=== PATIENT | female | born 1990 | race Caucasian/White ===

== ENCOUNTER 2020-02-27 07:53 | Inpatient (IN) ==
[2020-02-27] MEDS ORDERED: OXYTOCIN 30 UNITS/500 ML BAG IV PRN (08:30)
[2020-02-27 08:54] LABS: Hematocrit (blood only) 35.1 % (37-47); Hemoglobin 11.5 g/dL (12.0-16.0); Mean Corpuscular Hemoglobin 25.7 pg (25-34); Mean Corpuscular Volume 78.3 fL (80-100); Mean Platelet Volume 10.4 fL (7.4-10.4); Platelet Count 176 K/uL (130-400); RDW Coefficient of Variation 14.4 % (11.5-14.5); RDW Standard Deviation 41.5 fL (36.4-46.3); Red Blood Count 4.48 M/uL (4.2-5.4); White Blood Count 14.66 K/uL (4.8-10.8)
[2020-02-27] MEDS: LACTATED RINGER'S 1,000 ML IV PRN ×3 (08:56→16:24)
[2020-02-27 09:01] LABS: Mean Corpuscular Hgb Conc 32.8 g/dL (32-36)
[2020-02-27] MEDS: OXYTOCIN 30 UNITS/500 ML BAG IV PRN ×2 (09:09→16:24)
--- NOTE | 2020-02-27 09:18 | History & Physical Report ---
Date of Service February 27, 2020 Assessment & Plan (1) 39 weeks gestation of : (2) Intrauterine growth restriction (IUGR) affecting care of mother: IOL for FGR at 39 wks VSS s/p garcia bulb, will start augmentation w/ pit GBS neg epidural PRN Present on Admission?: Yes Admission and Anticipated Discharge Date Admission Date: February 27, 2020 History of Present Illness Chief Complaint: IOL FGR Primary Care Provider: NO PCP 29 y/o G1 at 39w1d wga presenting for IOL for FGR. +FM and ctx; -LOF, some blood with wiping. Reports garcia came out around 630 this morning PNI: FGR EFW 6% at 36w5d, UA dopplers and DVPs have been wnl Allergies Allergy/AdvReac Type Severity Reaction Status Date / Time No Known Allergies Allergy Verified 02/26/20 19:33 Home Medications Home Medications Medication Instructions Recorded Confirmed Type prenat.vits,shon,acs-psmg-lyzte 1 tab PO DAILY 07/29/19 02/26/20 History ferrous sulfate 325 mg PO DAILY 02/26/20 02/26/20 History Patient History Medical History Abnormal biochemical finding on screening of mother Encounter for anatomic survey Hx of varicella Vaginal infection Yeast infection Surgical History No pertinent past surgical history Family History Grandfather Esophageal cancer Father Hypertension Social History Smoking Status: Never smoker Second Hand Exposure: No; Do You Dip or Chew Tobacco: No; Tobacco Cessation Education Requested by Patient: No Hx Alcohol Use: No Hx Substance Use: No Preferred Language: Lithuanian Communication Ability: Effective Harness Mender Required: No Beliefs That Will Affect Care: None marital status: marital status details: Jasson Amos (28) [phone] Current Living Situation: Spouse Current Living Situation Comment: Pt lives with spouse current occupational status: unemployed current occupation: homemaker Other Information That Helps Us Care for You: No Feels Safe at Home: Yes Safety Concerns: Feels Safe At This Time Assistive Devices: None Physical Exam Constitutional: well developed and well nourished; no acute distress Respiratory: normal respiratory effort; no labored breathing Gastrointestinal (Abdomen): Percussion/Palpation: abdomen soft; abdomen nontender gravid Genitourinary: OB Exam Abdomen: + vertex and + estimated weight (5-6lbs) Manual OB Exam: + cervical dilation 3 cm, + cervical effacement 70% and + station -2 OB Exam Monitor Tracing: + external FHT monitor used, + external uterine monitor used (q6min) and + category I (150/mod/+accel/-decel) Results & Data ([facility]) Vital Signs (Past 12 Hours) Vital Signs Temp Pulse Resp BP 02/27/20 08:18 97.9 F 115 H 16 126/83 02/27/20 08:02 115 H 126/83 Laboratory Results A+ rubella imm GBS neg RPR NR Hep B NR HIV neg Declined genetic screening Code Status & VTE Plan VTE Prophylaxis Plan VTE Prophylaxis will be ordered: Yes Coding Level of Care Code None Diagnoses 39 weeks gestation of Z3A.39 Intrauterine growth restriction (IUGR) affecting care of mother O36.5990
[2020-02-27] MEDS ORDERED: ePHEDrine sulfate 50 MG/ML AMP ONE (09:53)
[2020-02-27] MEDS ORDERED: fentaNYL 2MCG/ML ROPIV 1.25MG/ML 100 ML BAG EPI ONE (09:54)
[2020-02-27] MEDS ORDERED: fentaNYL citrate 100 MCG/2 ML VIAL ONE (09:54)
[2020-02-27] MEDS ORDERED: BUPIVACAINE 0.25% 30 ML VIAL ONE (09:54)
[2020-02-27] MEDS ORDERED: ePHEDrine sulfate 50 MG/ML AMP IV PRN (10:53)
[2020-02-27] MEDS ORDERED: DiphenhydrAMINE HCL 50 MG/ML VIAL IV PRN (10:53)
[2020-02-27] MEDS ORDERED: fentaNYL 2MCG/ML ROPIV 1.25MG/ML 100 ML BAG EPI PRN (10:53)
[2020-02-27] MEDS ORDERED: NALOXONE HCL 1 MG in SODIUM CHLORIDE 0.9% 1000ML 1,000 ML IV PRN (10:53)
[2020-02-27] MEDS ORDERED: NALOXONE HCL 0.4 MG/1 ML VIAL/CARP IV PRN (10:53)
[2020-02-27] MEDS ORDERED: ONDANSETRON INJ 2 MG/ML 2 ML VIAL IV PRN (10:53)
--- NOTE | 2020-02-27 10:56 | Anesthesiology Consultation ---
Date of Service February 27, 2020 Covid 19 negative today. Assessment & Plan Chart Review Chart Review: Patient NOT seen in Pre Admission Testing and Acceptable Risk for Labor Epidural Consults Requested none ASA ASA2 Proposed Anesthesia Anesthesia Type: Labor Epidural and CSE Risk / Benefits Reviewed With: PT / POA / Parent / Guardian, Accepts Plan and Informed Consent Obtained History Height/Weight Height: 5 ft Weight: 57.153 kg Allergies Allergy/AdvReac Type Severity Reaction Status Date / Time No Known Allergies Allergy Verified 02/26/20 19:33 Medications Home Medications Medication Instructions Recorded Confirmed Last Taken prenat.vits,shon,ole-jvws-uguzj 1 tab PO DAILY 07/29/19 02/26/20 02/25/20 21:00 ferrous sulfate 325 mg PO DAILY 02/26/20 02/26/20 02/26/20 21:00 Active Medications Generic Name Dose Route Start Last Admin Trade Name Freq PRN Reason Stop Dose Admin Lactated Ringer's 1,000 mls @ 125 mls/hr 02/27/20 08:30 02/27/20 10:40 Lr IV 02/29/20 08:29 125 mls/hr .Q8H PRN Administration L&D Protocol Protocol Oxytocin 30 units in 500 mls @ 7 mls/hr 02/27/20 08:35 02/27/20 10:40 Pitocin IV 02/29/20 08:34 0.42 units/hr .Q24H PRN 7 mls/hr Labor Induction/Augmentation Titration Protocol 0.42 UNITS/HR NPO Date Last Intake of Fluids: 02/27/20 Time Last Intake of Fluids: 09:00 Date Last Intake of Solids: 02/26/20 Time Last Intake of Solids: 22:00 Past Medical History Medical History Abnormal biochemical finding on screening of mother Encounter for anatomic survey Hx of varicella Vaginal infection Yeast infection Exercise / Class Metabolic Activity II 4-5 Yardwork/Stairs/Walk up hill Past Family History Family History Grandfather Esophageal cancer Father Hypertension Past Surgical History Surgical History No pertinent past surgical history Past Anesthesia History No Hx of Anesthesia Complications and No Family Hx of Anesthesia Complications History of PONV No Hx of PONV and No Hx of Motion Sickness Social History Smoking Status: Never smoker Do You Dip or Chew Tobacco: No Hx Alcohol Use: No Hx Substance Use: No substance use type: does not use Review of Systems no chest pain or sob Physical Exam Vital Signs Last Vital Signs Temp 36.6 C 02/27/20 08:18 Pulse 113 H 02/27/20 10:51 Resp 16 02/27/20 08:18 BP 140/99 02/27/20 10:37 Pulse Ox 99 02/27/20 10:51 ENMT Mouth: no TMJ abnormality Thyromental Distance: > or= 3.5 Finger Breadths Mallampati Class: II Neck normal visual inspection Respiratory normal respiratory effort Auscultation: lungs clear to auscultation bilaterally Cardiovascular Rate/Rhythm: regular rate and regular rhythm Musculoskeletal Spine: normal cervical ROM Neurologic moves all extremities Psychiatric Orientation: alert and oriented x 3 Testing Laboratory Results 02/27/20 08:40
--- NOTE | 2020-02-27 12:45 | Labor Progress Brief Note ---
Date of Service February 27, 2020 Subjective Comfortable with epidural Assessment & Plan (1) 39 weeks gestation of : (2) Intrauterine growth restriction (IUGR) affecting care of mother: IOL for FGR at 39 wks VSS cat 2 tracing but reassuring pit at 13, continue repositioning GBS neg epidural Admission and Anticipated Discharge Date Admission Date: February 27, 2020 Physical Exam Genitourinary: OB Exam Monitor Tracing: + external uterine monitor used (q4min) and + category II (150/mod/+accel/+intermittent variables) 3.5/80/-2 by nursing Results & Data ([facility]) Vital Signs (Past 12 Hours) Vital Signs Temp Pulse Resp BP Pulse Ox 02/27/20 12:41 90 100 02/27/20 12:40 89 92 02/27/20 12:36 71 100 02/27/20 12:32 74 134/81 02/27/20 12:31 78 100 02/27/20 12:26 73 100 02/27/20 12:21 76 123/87 100 02/27/20 12:16 89 98 02/27/20 12:12 99 H 90 02/27/20 12:11 99 H 98 02/27/20 12:06 79 97 02/27/20 12:04 81 92 02/27/20 12:02 78 124/89 02/27/20 12:01 84 100 02/27/20 12:00 97.7 F 18 02/27/20 11:56 84 100 02/27/20 11:51 83 99 02/27/20 11:46 88 111/67 100 02/27/20 11:41 79 100 02/27/20 11:36 89 100 02/27/20 11:32 90 109/65 02/27/20 11:31 82 100 02/27/20 11:27 111 H 111/76 02/27/20 11:26 97 H 99 02/27/20 11:25 92 H 101/63 02/27/20 11:23 76 113/67 02/27/20 11:21 88 111/65 100 02/27/20 11:18 86 114/64 02/27/20 11:16 90 100 02/27/20 11:15 100 H 114/77 02/27/20 11:13 86 115/84 02/27/20 11:12 92 H 118/75 02/27/20 11:11 90 99 02/27/20 11:07 99 H 128/75 02/27/20 11:06 92 H 99 02/27/20 11:03 115 H 136/97 02/27/20 11:01 109 H 99 02/27/20 10:56 116 H 99 02/27/20 10:51 113 H 99 02/27/20 10:46 107 H 99 02/27/20 10:41 104 H 100 02/27/20 10:37 92 H 140/99 02/27/20 10:36 103 H 99 02/27/20 10:33 98 H 138/87 02/27/20 10:31 114 H 97 02/27/20 10:09 108 H 130/91 02/27/20 09:56 98 H 129/89 02/27/20 09:39 89 124/87 02/27/20 08:18 97.9 F 115 H 16 126/83 02/27/20 08:02 115 H 126/83 Coding Level of Care Code None Diagnoses 39 weeks gestation of Z3A.39 Intrauterine growth restriction (IUGR) affecting care of mother O36.5990
--- NOTE | 2020-02-27 14:35 | Labor Progress Brief Note ---
Date of Service February 27, 2020 Subjective Comfortable with epidural, occasional contraction pain Assessment & Plan (1) 39 weeks gestation of : (2) Intrauterine growth restriction (IUGR) affecting care of mother: IOL for FGR at 39 wks VSS cat 2 tracing but still reassuring pit at 17, continue peanut ball and augmentation GBS neg epidural Admission and Anticipated Discharge Date Admission Date: February 27, 2020 Physical Exam Genitourinary: Manual OB Exam: + cervical dilation (3.5cm), + cervical effacement 70% and + station -1 OB Exam Monitor Tracing: + external FHT monitor used, + external uterine monitor used (q4min) and + category II (150/mod/+accel/intermit variables) Results & Data ([facility]) Vital Signs (Past 12 Hours) Vital Signs Temp Pulse Resp BP Pulse Ox 02/27/20 14:26 100 H 96 02/27/20 14:21 103 H 100 02/27/20 14:16 80 127/81 100 02/27/20 14:11 73 100 02/27/20 14:06 75 100 02/27/20 14:04 85 126/79 02/27/20 14:01 92 H 100 02/27/20 13:56 106 H 100 02/27/20 13:51 79 100 02/27/20 13:48 87 149/65 H 02/27/20 13:46 91 H 100 02/27/20 13:41 84 100 02/27/20 13:36 76 100 02/27/20 13:32 80 106/64 02/27/20 13:31 90 100 02/27/20 13:26 90 100 02/27/20 13:21 94 H 100 02/27/20 13:16 75 137/88 100 02/27/20 13:11 76 100 02/27/20 13:07 113 H 91 02/27/20 13:06 91 H 100 02/27/20 13:01 84 100 02/27/20 12:59 87 89 L 02/27/20 12:56 79 91 02/27/20 12:52 84 91 02/27/20 12:51 83 94 02/27/20 12:46 79 130/73 100 02/27/20 12:41 90 100 02/27/20 12:40 89 92 02/27/20 12:36 71 100 02/27/20 12:32 74 134/81 02/27/20 12:31 78 100 02/27/20 12:26 73 100 02/27/20 12:21 76 123/87 100 02/27/20 12:16 89 98 02/27/20 12:12 99 H 90 02/27/20 12:11 99 H 98 02/27/20 12:06 79 97 02/27/20 12:04 81 92 02/27/20 12:02 78 124/89 02/27/20 12:01 84 100 02/27/20 12:00 97.7 F 18 02/27/20 11:56 84 100 02/27/20 11:51 83 99 02/27/20 11:46 88 111/67 100 02/27/20 11:41 79 100 02/27/20 11:36 89 100 02/27/20 11:32 90 109/65 02/27/20 11:31 82 100 02/27/20 11:27 111 H 111/76 02/27/20 11:26 97 H 99 02/27/20 11:25 92 H 101/63 02/27/20 11:23 76 113/67 02/27/20 11:21 88 111/65 100 02/27/20 11:18 86 114/64 02/27/20 11:16 90 100 02/27/20 11:15 100 H 114/77 02/27/20 11:13 86 115/84 02/27/20 11:12 92 H 118/75 02/27/20 11:11 90 99 02/27/20 11:07 99 H 128/75 02/27/20 11:06 92 H 99 02/27/20 11:03 115 H 136/97 02/27/20 11:01 109 H 99 02/27/20 10:56 116 H 99 02/27/20 10:51 113 H 99 02/27/20 10:46 107 H 99 02/27/20 10:41 104 H 100 02/27/20 10:37 92 H 140/99 02/27/20 10:36 103 H 99 02/27/20 10:33 98 H 138/87 02/27/20 10:31 114 H 97 02/27/20 10:09 108 H 130/91 02/27/20 09:56 98 H 129/89 02/27/20 09:39 89 124/87 02/27/20 08:18 97.9 F 115 H 16 126/83 02/27/20 08:02 115 H 126/83 Coding Level of Care Code None Diagnoses 39 weeks gestation of Z3A.39 Intrauterine growth restriction (IUGR) affecting care of mother O36.5990
--- NOTE | 2020-02-27 16:17 | Labor Progress Brief Note ---
Date of Service February 27, 2020 Subjective Comfortable with epidural Assessment & Plan (1) Intrauterine growth restriction (IUGR) affecting care of mother: IOL for FGR at 39 wks VSS cat 2 tracing but still reassuring pit at 19 with more variables, no change in cervix. Will pit break and restart after 1 hour GBS neg epidural Admission and Anticipated Discharge Date Admission Date: February 27, 2020 Physical Exam Genitourinary: OB Exam Abdomen: + vertex and + estimated weight (5-6lbs) Manual OB Exam: + cervical dilation (3.5cm) 3 cm, + cervical effacement 70% and + station -1 OB Exam Monitor Tracing: + external FHT monitor used, + external uterine monitor used (q4min) and + category II (150/mod/+accel/intermit variables, more prevalent) Results & Data ([facility]) Vital Signs (Past 12 Hours) Vital Signs Temp Pulse Resp BP Pulse Ox 02/27/20 16:11 77 100 02/27/20 16:06 77 100 02/27/20 16:01 86 100 02/27/20 16:00 94 H 18 93 02/27/20 15:56 79 100 02/27/20 15:51 77 100 02/27/20 15:47 72 151/85 H 02/27/20 15:46 71 100 02/27/20 15:41 70 100 02/27/20 15:36 72 100 02/27/20 15:31 97 H 116/79 100 02/27/20 15:30 18 02/27/20 15:26 78 100 02/27/20 15:21 76 100 02/27/20 15:16 102 H 114/70 100 02/27/20 15:11 78 100 02/27/20 15:06 85 100 02/27/20 15:04 95 H 91 02/27/20 15:01 77 149/95 H 98 02/27/20 15:00 97.9 F 18 02/27/20 14:57 87 91 02/27/20 14:56 86 94 02/27/20 14:51 98 H 97 02/27/20 14:47 90 117/83 02/27/20 14:46 96 H 100 02/27/20 14:41 94 H 100 02/27/20 14:36 71 100 02/27/20 14:32 85 132/94 02/27/20 14:31 79 100 02/27/20 14:26 100 H 96 02/27/20 14:21 103 H 100 02/27/20 14:16 80 127/81 100 02/27/20 14:11 73 100 02/27/20 14:06 75 100 02/27/20 14:05 98.2 F 16 02/27/20 14:04 85 126/79 02/27/20 14:01 92 H 100 02/27/20 13:56 106 H 100 02/27/20 13:51 79 100 02/27/20 13:48 87 149/65 H 02/27/20 13:46 91 H 100 02/27/20 13:41 84 100 02/27/20 13:36 76 100 02/27/20 13:32 80 106/64 02/27/20 13:31 90 100 02/27/20 13:26 90 100 02/27/20 13:21 94 H 100 02/27/20 13:16 75 137/88 100 02/27/20 13:11 76 100 02/27/20 13:07 113 H 91 02/27/20 13:06 91 H 100 02/27/20 13:01 84 100 02/27/20 12:59 87 89 L 02/27/20 12:56 79 91 02/27/20 12:52 84 91 02/27/20 12:51 83 94 02/27/20 12:46 79 130/73 100 02/27/20 12:41 90 100 02/27/20 12:40 89 92 02/27/20 12:36 71 100 02/27/20 12:32 74 134/81 02/27/20 12:31 78 100 02/27/20 12:26 73 100 02/27/20 12:21 76 123/87 100 02/27/20 12:16 89 98 02/27/20 12:12 99 H 90 02/27/20 12:11 99 H 98 02/27/20 12:06 79 97 02/27/20 12:04 81 92 02/27/20 12:02 78 124/89 02/27/20 12:01 84 100 02/27/20 12:00 97.7 F 18 02/27/20 11:56 84 100 02/27/20 11:51 83 99 02/27/20 11:46 88 111/67 100 02/27/20 11:41 79 100 02/27/20 11:36 89 100 02/27/20 11:32 90 109/65 02/27/20 11:31 82 100 02/27/20 11:27 111 H 111/76 02/27/20 11:26 97 H 99 02/27/20 11:25 92 H 101/63 02/27/20 11:23 76 113/67 02/27/20 11:21 88 111/65 100 02/27/20 11:18 86 114/64 02/27/20 11:16 90 100 02/27/20 11:15 100 H 114/77 02/27/20 11:13 86 115/84 02/27/20 11:12 92 H 118/75 02/27/20 11:11 90 99 02/27/20 11:07 99 H 128/75 02/27/20 11:06 92 H 99 02/27/20 11:03 115 H 136/97 02/27/20 11:01 109 H 99 02/27/20 10:56 116 H 99 02/27/20 10:51 113 H 99 02/27/20 10:46 107 H 99 02/27/20 10:41 104 H 100 02/27/20 10:37 92 H 140/99 02/27/20 10:36 103 H 99 02/27/20 10:33 98 H 138/87 02/27/20 10:31 114 H 97 02/27/20 10:09 108 H 130/91 02/27/20 09:56 98 H 129/89 02/27/20 09:39 89 124/87 02/27/20 08:18 97.9 F 115 H 16 126/83 02/27/20 08:02 115 H 126/83 Coding Level of Care Code None Diagnoses Intrauterine growth restriction (IUGR) affecting care of mother O36.5990
--- NOTE | 2020-02-27 19:15 | Labor Progress Brief Note ---
Date of Service February 27, 2020 Subjective Comfortable with epidural Assessment & Plan (1) Intrauterine growth restriction (IUGR) affecting care of mother: IOL for FGR at 39 wks VSS cat 2 tracing but will improve with resuscitations. Continue to monitor pit at 6, continuing to progress with reassuring tracing. s/p SROM this AM GBS neg epidural Admission and Anticipated Discharge Date Admission Date: February 27, 2020 Physical Exam Genitourinary: Manual OB Exam: + cervical dilation 4 cm, + cervical effacement 90% and + station 0 OB Exam Monitor Tracing: + external FHT monitor used, + external uterine monitor used (q4min) and + category II (160/mod/- accels/intermit variables) Results & Data ([facility]) Vital Signs (Past 12 Hours) Vital Signs Temp Pulse Resp BP Pulse Ox 02/27/20 19:06 83 99 02/27/20 19:02 100 H 115/76 02/27/20 19:01 103 H 99 02/27/20 18:56 120 H 100 02/27/20 18:51 79 99 02/27/20 18:48 77 129/79 02/27/20 18:46 91 H 100 02/27/20 18:41 82 100 02/27/20 18:36 88 99 02/27/20 18:33 108 H 118/79 02/27/20 18:31 112 H 99 02/27/20 18:26 90 100 02/27/20 18:21 102 H 99 02/27/20 18:17 93 H 138/87 02/27/20 18:16 88 100 02/27/20 18:11 109 H 100 02/27/20 18:06 107 H 98 02/27/20 18:01 99 H 137/89 99 02/27/20 18:00 98.2 F 18 02/27/20 17:56 103 H 99 02/27/20 17:51 107 H 100 02/27/20 17:46 108 H 124/83 98 02/27/20 17:41 112 H 99 02/27/20 17:38 116 H 92 02/27/20 17:36 90 98 02/27/20 17:31 107 H 128/87 99 02/27/20 17:30 18 02/27/20 17:26 105 H 100 02/27/20 17:24 113 H 90 02/27/20 17:21 117 H 100 02/27/20 17:18 116 H 123/75 02/27/20 17:16 117 H 100 02/27/20 17:11 85 100 02/27/20 17:09 124 H 90 02/27/20 17:06 90 98 02/27/20 17:02 108 H 111/82 02/27/20 17:01 86 100 02/27/20 17:00 98.4 F 18 02/27/20 16:56 90 99 02/27/20 16:51 96 H 100 02/27/20 16:46 85 114/64 100 02/27/20 16:41 81 95 02/27/20 16:36 78 100 02/27/20 16:32 76 123/73 02/27/20 16:31 78 100 02/27/20 16:26 87 100 02/27/20 16:21 80 100 02/27/20 16:16 79 125/75 100 02/27/20 16:11 77 100 02/27/20 16:06 77 100 02/27/20 16:01 86 100 02/27/20 16:00 94 H 18 93 02/27/20 15:56 79 100 02/27/20 15:51 77 100 02/27/20 15:47 72 151/85 H 02/27/20 15:46 71 100 02/27/20 15:41 70 100 02/27/20 15:36 72 100 02/27/20 15:31 97 H 116/79 100 02/27/20 15:30 18 02/27/20 15:26 78 100 02/27/20 15:21 76 100 02/27/20 15:16 102 H 114/70 100 02/27/20 15:11 78 100 02/27/20 15:06 85 100 02/27/20 15:04 95 H 91 02/27/20 15:01 77 149/95 H 98 02/27/20 15:00 97.9 F 18 02/27/20 14:57 87 91 02/27/20 14:56 86 94 02/27/20 14:51 98 H 97 02/27/20 14:47 90 117/83 02/27/20 14:46 96 H 100 02/27/20 14:41 94 H 100 02/27/20 14:36 71 100 09/28/20 14:32 85 132/94 02/27/20 14:31 79 100 02/27/20 14:26 100 H 96 02/27/20 14:21 103 H 100 02/27/20 14:16 80 127/81 100 02/27/20 14:11 73 100 02/27/20 14:06 75 100 02/27/20 14:05 98.2 F 16 02/27/20 14:04 85 126/79 02/27/20 14:01 92 H 100 02/27/20 13:56 106 H 100 02/27/20 13:51 79 100 02/27/20 13:48 87 149/65 H 02/27/20 13:46 91 H 100 02/27/20 13:41 84 100 02/27/20 13:36 76 100 02/27/20 13:32 80 106/64 02/27/20 13:31 90 100 02/27/20 13:26 90 100 02/27/20 13:21 94 H 100 02/27/20 13:16 75 137/88 100 02/27/20 13:11 76 100 02/27/20 13:07 113 H 91 02/27/20 13:06 91 H 100 02/27/20 13:01 84 100 02/27/20 12:59 87 89 L 02/27/20 12:56 79 91 02/27/20 12:52 84 91 02/27/20 12:51 83 94 02/27/20 12:46 79 130/73 100 02/27/20 12:41 90 100 02/27/20 12:40 89 92 02/27/20 12:36 71 100 02/27/20 12:32 74 134/81 02/27/20 12:31 78 100 02/27/20 12:26 73 100 02/27/20 12:21 76 123/87 100 02/27/20 12:16 89 98 02/27/20 12:12 99 H 90 02/27/20 12:11 99 H 98 02/27/20 12:06 79 97 02/27/20 12:04 81 92 02/27/20 12:02 78 124/89 02/27/20 12:01 84 100 02/27/20 12:00 97.7 F 18 02/27/20 11:56 84 100 02/27/20 11:51 83 99 02/27/20 11:46 88 111/67 100 02/27/20 11:41 79 100 02/27/20 11:36 89 100 02/27/20 11:32 90 109/65 02/27/20 11:31 82 100 02/27/20 11:27 111 H 111/76 02/27/20 11:26 97 H 99 02/27/20 11:25 92 H 101/63 02/27/20 11:23 76 113/67 02/27/20 11:21 88 111/65 100 02/27/20 11:18 86 114/64 02/27/20 11:16 90 100 02/27/20 11:15 100 H 114/77 02/27/20 11:13 86 115/84 02/27/20 11:12 92 H 118/75 02/27/20 11:11 90 99 02/27/20 11:07 99 H 128/75 02/27/20 11:06 92 H 99 02/27/20 11:03 115 H 136/97 02/27/20 11:01 109 H 99 02/27/20 10:56 116 H 99 02/27/20 10:51 113 H 99 02/27/20 10:46 107 H 99 02/27/20 10:41 104 H 100 02/27/20 10:37 92 H 140/99 02/27/20 10:36 103 H 99 02/27/20 10:33 98 H 138/87 02/27/20 10:31 114 H 97 02/27/20 10:09 108 H 130/91 02/27/20 09:56 98 H 129/89 02/27/20 09:39 89 124/87 02/27/20 08:18 97.9 F 115 H 16 126/83 02/27/20 08:02 115 H 126/83 Coding Level of Care Code None Diagnoses Intrauterine growth restriction (IUGR) affecting care of mother O36.5990
--- NOTE | 2020-02-27 21:04 | Labor Progress Brief Note ---
Date of Service February 27, 2020 Subjective Comfortable with epidural Assessment & Plan (1) Intrauterine growth restriction (IUGR) affecting care of mother: IOL for FGR at 39 wks VSS cat 2 tracing but will improve with resuscitations. Continue to monitor pit at 6, continuing to progress, will continue to monitor. Discussed if minimal progression and worsening of strip, will need to discuss moving towards . Pt verbalized understanding GBS neg epidural Admission and Anticipated Discharge Date Admission Date: February 27, 2020 Physical Exam Genitourinary: Manual OB Exam: + cervical dilation 5 cm, + cervical effacement 90% and + station 0 OB Exam Monitor Tracing: + external FHT monitor used, + external uterine monitor used (q4min) and + category II (170/mod/+accels/intermit early and variables) Results & Data ([facility]) Vital Signs (Past 12 Hours) Vital Signs Temp Pulse Resp BP Pulse Ox 02/27/20 20:56 94 H 99 02/27/20 20:51 98 H 99 02/27/20 20:46 95 H 119/77 100 02/27/20 20:41 88 100 02/27/20 20:36 74 100 02/27/20 20:32 88 110/78 02/27/20 20:31 102 H 100 02/27/20 20:26 104 H 100 02/27/20 20:22 97.9 F 18 02/27/20 20:21 110 H 99 02/27/20 20:18 118 H 107/60 02/27/20 20:16 106 H 93 02/27/20 20:11 80 100 02/27/20 20:06 94 H 100 02/27/20 20:03 86 134/73 02/27/20 20:01 82 100 02/27/20 19:56 95 H 98 02/27/20 19:51 87 93 02/27/20 19:50 82 121/74 02/27/20 19:47 82 140/90 02/27/20 19:46 84 100 02/27/20 19:41 82 100 02/27/20 19:38 85 91 02/27/20 19:36 87 100 02/27/20 19:33 83 90 02/27/20 19:31 83 100 02/27/20 19:26 92 H 99 02/27/20 19:25 90 91 02/27/20 19:21 81 100 02/27/20 19:16 83 131/75 100 02/27/20 19:14 87 92 02/27/20 19:11 98.8 F 80 18 100 02/27/20 19:06 83 99 02/27/20 19:02 100 H 115/76 02/27/20 19:01 103 H 99 02/27/20 18:56 120 H 100 02/27/20 18:51 79 99 02/27/20 18:48 77 129/79 02/27/20 18:46 91 H 100 02/27/20 18:41 82 100 02/27/20 18:36 88 99 02/27/20 18:33 108 H 118/79 02/27/20 18:31 112 H 99 02/27/20 18:26 90 100 02/27/20 18:21 102 H 99 02/27/20 18:17 93 H 138/87 02/27/20 18:16 88 100 02/27/20 18:11 109 H 100 02/27/20 18:06 107 H 98 02/27/20 18:01 99 H 137/89 99 02/27/20 18:00 98.2 F 18 02/27/20 17:56 103 H 99 02/27/20 17:51 107 H 100 02/27/20 17:46 108 H 124/83 98 02/27/20 17:41 112 H 99 02/27/20 17:38 116 H 92 02/27/20 17:36 90 98 02/27/20 17:31 107 H 128/87 99 02/27/20 17:30 18 02/27/20 17:26 105 H 100 02/27/20 17:24 113 H 90 02/27/20 17:21 117 H 100 02/27/20 17:18 116 H 123/75 02/27/20 17:16 117 H 100 02/27/20 17:11 85 100 02/27/20 17:09 124 H 90 02/27/20 17:06 90 98 02/27/20 17:02 108 H 111/82 02/27/20 17:01 86 100 02/27/20 17:00 98.4 F 18 02/27/20 16:56 90 99 02/27/20 16:51 96 H 100 02/27/20 16:46 85 114/64 100 02/27/20 16:41 81 95 02/27/20 16:36 78 100 02/27/20 16:32 76 123/73 02/27/20 16:31 78 100 02/27/20 16:26 87 100 02/27/20 16:21 80 100 02/27/20 16:16 79 125/75 100 02/27/20 16:11 77 100 02/27/20 16:06 77 100 02/27/20 16:01 86 100 02/27/20 16:00 94 H 18 93 02/27/20 15:56 79 100 02/27/20 15:51 77 100 02/27/20 15:47 72 151/85 H 02/27/20 15:46 71 100 02/27/20 15:41 70 100 02/27/20 15:36 72 100 02/27/20 15:31 97 H 116/79 100 02/27/20 15:30 18 02/27/20 15:26 78 100 02/27/20 15:21 76 100 02/27/20 15:16 102 H 114/70 100 02/27/20 15:11 78 100 02/27/20 15:06 85 100 02/27/20 15:04 95 H 91 02/27/20 15:01 77 149/95 H 98 02/27/20 15:00 97.9 F 18 02/27/20 14:57 87 91 02/27/20 14:56 86 94 02/27/20 14:51 98 H 97 02/27/20 14:47 90 117/83 02/27/20 14:46 96 H 100 02/27/20 14:41 94 H 100 02/27/20 14:36 71 100 02/27/20 14:32 85 132/94 02/27/20 14:31 79 100 02/27/20 14:26 100 H 96 02/27/20 14:21 103 H 100 02/27/20 14:16 80 127/81 100 02/27/20 14:11 73 100 02/27/20 14:06 75 100 02/27/20 14:05 98.2 F 16 02/27/20 14:04 85 126/79 02/27/20 14:01 92 H 100 02/27/20 13:56 106 H 100 02/27/20 13:51 79 100 02/27/20 13:48 87 149/65 H 02/27/20 13:46 91 H 100 02/27/20 13:41 84 100 02/27/20 13:36 76 100 02/27/20 13:32 80 106/64 02/27/20 13:31 90 100 02/27/20 13:26 90 100 02/27/20 13:21 94 H 100 02/27/20 13:16 75 137/88 100 02/27/20 13:11 76 100 02/27/20 13:07 113 H 91 02/27/20 13:06 91 H 100 02/27/20 13:01 84 100 02/27/20 12:59 87 89 L 02/27/20 12:56 79 91 02/27/20 12:52 84 91 02/27/20 12:51 83 94 02/27/20 12:46 79 130/73 100 02/27/20 12:41 90 100 02/27/20 12:40 89 92 02/27/20 12:36 71 100 02/27/20 12:32 74 134/81 02/27/20 12:31 78 100 02/27/20 12:26 73 100 02/27/20 12:21 76 123/87 100 02/27/20 12:16 89 98 02/27/20 12:12 99 H 90 02/27/20 12:11 99 H 98 02/27/20 12:06 79 97 02/27/20 12:04 81 92 02/27/20 12:02 78 124/89 02/27/20 12:01 84 100 02/27/20 12:00 97.7 F 18 02/27/20 11:56 84 100 02/27/20 11:51 83 99 02/27/20 11:46 88 111/67 100 02/27/20 11:41 79 100 02/27/20 11:36 89 100 02/27/20 11:32 90 109/65 02/27/20 11:31 82 100 02/27/20 11:27 111 H 111/76 02/27/20 11:26 97 H 99 02/27/20 11:25 92 H 101/63 02/27/20 11:23 76 113/67 02/27/20 11:21 88 111/65 100 02/27/20 11:18 86 114/64 02/27/20 11:16 90 100 02/27/20 11:15 100 H 114/77 02/27/20 11:13 86 115/84 02/27/20 11:12 92 H 118/75 02/27/20 11:11 90 99 02/27/20 11:07 99 H 128/75 02/27/20 11:06 92 H 99 02/27/20 11:03 115 H 136/97 02/27/20 11:01 109 H 99 02/27/20 10:56 116 H 99 02/27/20 10:51 113 H 99 02/27/20 10:46 107 H 99 02/27/20 10:41 104 H 100 02/27/20 10:37 92 H 140/99 02/27/20 10:36 103 H 99 02/27/20 10:33 98 H 138/87 02/27/20 10:31 114 H 97 02/27/20 10:09 108 H 130/91 02/27/20 09:56 98 H 129/89 02/27/20 09:39 89 124/87 Coding Level of Care Code None Diagnoses Intrauterine growth restriction (IUGR) affecting care of mother O36.5990
[2020-02-27] MEDS ORDERED: Nursing to Pharmacy Communication SCH (21:30)
--- NOTE | 2020-02-28 00:16 | Delivery Summary ---
Vaginal Delivery Summary Date of Service February 27, 2020 Vaginal Delivery Summary PREOPERATIVE DIAGNOSIS: 1. Single intrauterine at 39w1d 2. growth restriction POSTOPERATIVE DIAGNOSIS: 1. Single intrauterine at 39w1d 2. growth restriction 3. Delivered PROCEDURE: 1. Normal spontaneous vaginal delivery. SURGEON: Marya Grove MD ANESTHESIA: Epidural. ESTIMATED BLOOD LOSS: 400 mL FLUIDS: Continuous LR. URINE OUTPUT: None. COMPLICATIONS: None. CONDITION: Stable. INDICATIONS: 29 y/o G1 at 39w1d wga w/ EDC 03/04/20 by first trimester US presented for IOL for FGR. Induction was begun with gacria bulb for cervical ripening. Following bulb expulsion, oxytocin was initiated and titrated up per protocol. She received an epidural for pain control.At pit of 19, break was given for rest. Titration was then restarted. Cat 2 tracing was noted with periods of tachycardia, however cervical change continued to be made with overall reassuring tracing. FINDINGS: A viable male infant weighing 5lb 15oz with Apgars of 8 and 9 at 1 and 5 minutes respectively. SPECIMEN: Placenta OPERATIVE REPORT: The patient progressed to 10 cm, 100% effaced and +2 station, pushed over intact perineum with anesthesia to deliver a viable male infant, weight and Apgars as above. Head of delivered in OBI position. Nuchal cord x 1 was present and delivered through. Body and shoulders were delivered without difficulty. was delivered to maternal abdomen and nursing staff. Delayed cord clamping was performed for 60 seconds. Cord was clamped and cut. Cord blood was obtained. Placenta delivered spontaneously intact with 3-vessel cord. IV oxytocin and fundal massage were given for excellent hemostasis. Vagina, cervix, placenta and perineum were inspected. A second degree and bilateral labial lacerations were noted. The second degree was repaired in the usual fashion with 3-0 vicryl. The bilateral labial lacerations were repaired using 4-0 vicryl. All lacerations were noted to be excellently hemostatic. Sponge and needle counts correct x2. No sponges were left behind. Mother and stable in immediate period. [facility] [place] Vaginal Delivery Codes: 21795 global code for the antepartum, delivery, and post-
[2020-02-28] MEDS ORDERED: SUPERCREAM 0.870% 15 GM JAR EXT PRN (01:59)
[2020-02-28] MEDS ORDERED: HYDROCORTISONE ACETATE 25 MG SUPP PR PRN (01:59)
[2020-02-28] MEDS ORDERED: IBUPROFEN 600 MG TAB PO PRN (01:59)
[2020-02-28] MEDS ORDERED: ACETAMINOPHEN 325 MG TAB PO PRN (01:59)
[2020-02-28] MEDS ORDERED: BENZOCAINE 20% AER SPR 82.5 GM CAN EXT PRN (01:59)
[2020-02-28] MEDS ORDERED: bisacodyL 10 MG SUPP PR PRN (01:59)
[2020-02-28] MEDS ORDERED: DIPHTHERIA/TETANUS/PERTUSSIS 0.5 ML SYR/VIAL IM ONE (01:59)
--- NOTE | 2020-02-28 02:44 | Anesthesia Procedure Note ---
Date of Service February 28, 2020 Anesthesia Post Epidural Note Vital Signs Vital Signs: Temp Pulse Resp BP Pulse Ox 37.2 C 117 H 18 93/54 L 99 02/28/20 02:14 02/28/20 02:14 02/28/20 02:14 02/28/20 02:14 02/27/20 23:36 Pain Intensity Abdomen: Pain Intensity: 3 Notes Mental Status: alert / awake / arousable and participated in evaluation Nausea / Vomiting: adequately controlled Pain: adequately controlled Airway Patency, RR, SpO2: stable & adequate BP & HR: stable & adequate Hydration State: stable & adequate Neuraxial Anesthesia: was administered and sensory block is resolving Anesthetic Complications: no major complications apparent and Pt Satisfied with anesthetic care Epidural: Removed without complications and With tip intact
[2020-02-28] MEDS: PRENATAL VITAMIN 1 TAB PO SCH (08:19)
[2020-02-28] MEDS: FERROUS SULFATE 325 MG TAB PO SCH (08:19)
[2020-02-28] MEDS: DOCUSATE SODIUM 100 MG CAP PO SCH ×2 (08:19→20:01)
--- NOTE | 2020-02-28 08:37 | Obstetrical Progress Note ---
Date of Service February 28, 2020 Assessment & Plan (1) : VSS Meeting all milestones Will stay until PPD2 A+, rub imm Day #:: 1 (Meeting all milestones) Subjective Ambulation: ambulating normally Voiding: no voiding problems Passing Gas:: Yes Diet Tolerance:: nausea/vomiting Lochia:: Moderate (But improving) Feeding Type:: breast feeding Cramping with and soreness on bottom, both managed well with motrin Constitutional: no fever and no chills Respiratory: no dyspnea Cardiovascular: no chest pain Gastrointestinal: no abdominal pain and no bloating Physical Exam Constitutional well developed and well nourished; no acute distress Respiratory normal respiratory effort; no respiratory distress and no labored breathing Gastrointestinal (Abdomen) Inspection/Auscultation: abdomen normal to inspection Percussion/Palpation: abdomen soft; abdomen nontender and no guarding Fundus firm at umbilicus, nontender Musculoskeletal No calf tenderness, erythema, swelling Results & Data ([facility]) Vital Signs (Past 12 Hours) Vital Signs Temp Pulse Pulse Resp BP BP Pulse Ox 02/28/20 04:01 98.4 F 94 H 16 99/68 L 02/28/20 02:14 99.0 F 117 H 18 93/54 L 02/28/20 01:41 117 H 93/54 L 02/28/20 01:40 117 H 18 103/56 L 02/28/20 01:34 120 H 126/82 02/28/20 01:20 127 H 104/59 L 02/28/20 01:10 99.0 F 117 H 18 96/55 L 02/28/20 01:01 120 H 106/59 L 02/28/20 00:50 123 H 102/59 L 02/28/20 00:40 110 H 96/55 L 02/28/20 00:30 116 H 99/55 L 02/28/20 00:20 116 H 101/56 L 02/28/20 00:10 130 H 109/65 02/28/20 00:04 112 H 106/60 02/27/20 23:55 18 02/27/20 23:40 99.0 F 96 H 18 107/64 02/27/20 23:36 104 H 99 02/27/20 23:31 111 H 113/64 97 02/27/20 23:30 99.0 F 02/27/20 23:29 102 H 120/76 02/27/20 23:26 115 H 98 02/27/20 23:21 115 H 98 02/27/20 23:16 139 H 98 02/27/20 23:11 139 H 100 02/27/20 23:06 131 H 100 02/27/20 23:01 129 H 18 100 02/27/20 22:56 113 H 99 02/27/20 22:51 126 H 98 02/27/20 22:46 128 H 98 02/27/20 22:41 120 H 99 02/27/20 22:36 112 H 100 02/27/20 22:31 116 H 117/77 100 02/27/20 22:26 98 H 99 02/27/20 22:22 115 H 90 02/27/20 22:21 114 H 100 02/27/20 22:17 125 H 92 02/27/20 22:16 108 H 98 02/27/20 22:11 96 H 84 L 02/27/20 22:06 105 H 99 02/27/20 22:01 95 H 18 119/74 100 02/27/20 21:56 83 100 02/27/20 21:55 83 138/86 02/27/20 21:53 105 H 92 02/27/20 21:51 92 H 100 02/27/20 21:46 91 H 87 L 02/27/20 21:41 91 H 94 02/27/20 21:39 99 H 88 L 02/27/20 21:36 93 H 96 02/27/20 21:33 91 H 90 02/27/20 21:31 79 100 02/27/20 21:28 98.4 F 102 H 18 132/82 02/27/20 21:27 91 H 162/85 H 02/27/20 21:26 95 H 100 02/27/20 21:25 101 H 90 02/27/20 21:21 94 H 100 02/27/20 21:16 76 100 02/27/20 21:11 77 100 02/27/20 21:06 100 H 100 02/27/20 21:02 75 114/66 02/27/20 21:01 78 100 02/27/20 20:56 94 H 99 02/27/20 20:51 98 H 99 02/27/20 20:46 95 H 119/77 100 02/27/20 20:41 88 100 02/27/20 20:36 74 100
--- NOTE | 2020-02-28 15:27 | Obstetrical Progress Note ---
Date of Service February 29, 2020 Assessment & Plan (1) : S/p Day 2 - Feels well today. Eating well, voiding well, ambulating well. - Pain well-controlled with ibuprofen 600mg Q4H PRN. - Vital signs reviewed and WNL. - Hemoglobin reviewed. 11.5 (pre-) - Blood Type: A+, antibody negative, GBS negative, Rubella Immune, COVID-19 negative - Continue routine post- care: encourage ambulation, monitor and control pain with Motrin PRN, continue regular OB diet, monitor lochia - Encourage breast feeding. - Pt counselled on discharge instructions today - After discharge, will have 6-wk follow-up with Dr. Grove Admission and Anticipated Discharge Date Admission Date: February 27, 2020 Supervising Physician Co-Signing Physician Notes Resident Physician Supervision Note: I was present with Dr. Mcbride during the history and exam. I discussed the case with the resident and agree with the findings and plan as documented in the note. Any exceptions or clarifications are listed here: [None] Documented By: Kierra Skinner MD, FACOG Subjective HPI Cristal Valdivia is a 29 y/o female who is PPD 2 spontaneous vaginal delivery at 39 1/7 weeks. She reports feeling well overall this morning. No abdominal cramping and 0-2/10 pain well managed on analgesics. Voiding well. Tolerating meals overnight without difficulty. Patient has been able to ambulate some. passing gas and no bowel movement. Has persistent lochia with some improvement this morning. Currently . Review of Systems Review of Systems: ROS Denies fever or chills. Denies shortness of breath or cough. Denies chest pain. Denies breast pain. Denies dysuria. Denies leg pain or leg swelling. Physical Exam Physical Exam: PE General: Alert, oriented. No acute distress. Cardiac: Regular rate and rhythm. No murmurs. Respiratory: Clear to auscultation bilaterally a/p, no wheezes/rales/rhonchi. No increased work of breathing. Symmetrical chest rise. No respiratory distress. Abdomen: Soft, nontender, nondistended. Bowel sounds present. Uterus: Uterine fundus firm, palpable 1 cm below umbilicus. Lower Extremities: No lower extremity edema or swelling. No deep calf pain. Tomas's negative bilaterally. Results & Data ([facility]) Vital Signs (Past 12 Hours) Vital Signs Temp Pulse Pulse Resp BP BP Pulse Ox 02/28/20 11:05 36.2 C L 92 H 18 110/76 99 02/28/20 07:35 36.2 C L 104 H 16 108/74 100 02/28/20 04:01 36.9 C 94 H 16 99/68 L Resident Activity Tracking Resident Involvement: Resident Care Provided Care Provided: OB Delivery
[2020-02-29] MEDS: FERROUS SULFATE 325 MG TAB PO SCH (08:41)
[2020-02-29] MEDS: DOCUSATE SODIUM 100 MG CAP PO SCH (08:41)
[2020-02-29] MEDS: PRENATAL VITAMIN 1 TAB PO SCH (08:41)
[2020-02-29] MEDS ORDERED: bisacodyL 5 MG TABEC PO SCH (20:00)
== END 2020-02-29 13:10 | disposition home or self-care (01) | DRG 807 ==
LOC: 4S1 07:53 → 4S2 02-28 03:32